=== PATIENT | female | born 1985 | race Asian ===

== ENCOUNTER 2023-08-14 10:22 | Emergency (ER) | payer OTHER ==
[~2023-08-14] VITALS: Ht 157.5 cm; Wt 55.0 kg
[2023-08-14 10:24] VITALS: O2SAT 98
[2023-08-14] MEDS ORDERED: KETOROLAC 30MG/ML VIAL IM ONE (10:45)
[2023-08-14] MEDS ORDERED: ACET-2708 MT (11:16)
[2023-08-14 11:47] VITALS: BP 100/72; PULSE 80; RESP 18; TEMP 98.2
== END 2023-08-14 11:49 | disposition home or self-care (01) ==
LOC: ER 10:22
DX: M54.2 Cervicalgia (principal); W18.30XA Fall on same level, unspecified, initial encounter; Y93.89 Activity, other specified; Y92.89 Other specified places as the place of occurrence of the external cause; Y99.8 Other external cause status
CPT/HCPCS: 99283; 81025; 96372; J1885